=== PATIENT | male | born 1980 | race Caucasian/White ===

== ENCOUNTER → 2019-05-27 | Outpatient (CLI) | payer OTHER | LOC: COL.RAD 09:39 | DX: K74.60 Unspecified cirrhosis of liver (principal) ==

== ENCOUNTER → 2019-08-19 | Outpatient (CLI) | payer OTHER ==
[~2019-08-19] VITALS: Ht 172.7 cm; Wt 79.5 kg
[2019-08-19] VITALS (10 sets, daily range): BP systolic 96–118; BP diastolic 68–77; PULSE 75–86
[~2019-08-19] MED LIST: ALDACTONE50 MG PO; EPA FISH OIL1 SGL PO; LASIX 40MG TABL40 MG PO
[2019-08-19 11:32] LABS: INR 0.9 (0.8-3.0); PROTHROMBIN TIME 10.9 SECONDS (9.7-12.8)
--- NOTE | 2019-08-19 11:45 | NUR ---
PT TAKEN TO ULTRASOUND AND PLACED ON TABLE. MONITORING EQUIPMENT PLACED AND IMAGES TAKEN AND SENT.
--- NOTE | 2019-08-19 12:00 | NUR ---
PT WAS GIVEN 1MG VERSED AND 50 MCG FENTANYL
--- NOTE | 2019-08-19 12:00 | NUR ---
HERBERTH MENSAH IS WITH PT TO TRANSLATE FOR DR PUENTE.
--- NOTE | 2019-08-19 14:21 | NUR ---
PT TAKEN DOWN IN WHEELCHAIR WITH NIECE PRESENT. PT WS ABLE TO GET INTO THE POV WITH MINIMAL ASSIST.
== END ==
LOC: COL.RAD 10:00
PROVIDERS: Radiology Diagnostic Radiology
DX: K74.60 Unspecified cirrhosis of liver (principal)
CPT/HCPCS: 32108

== ENCOUNTER 2020-01-03 13:46 | Inpatient (IN) | payer SELFPAY ==
[~2020-01-03] VITALS: Ht 172.7 cm; Wt 90.2 kg
[2020-01-03] VITALS (174 sets, daily range): BP systolic 102–112; BP diastolic 78–85; PULSE 106–140; TEMP 97.8; O2SAT 91–100
[2020-01-03 14:33] LABS: BASO % 0.5 % (0.0-2.0); EOS # 0.1 (0.0-0.7); EOS % 0.9 % (0-4.0); GRAN # 6.1 (1.4-6.5); GRAN % 75.9 % (42.2-75.2); HEMATOCRIT 53.7 % (42.0-52.0); HEMOGLOBIN 17.8 g/dl (13.5-18.0); LYMPH % 12.2 % (20.0-51.0); MEAN CELL VOLUME 85 fl (80.0-100.0); MEAN CORPUSCULAR HEMOGLOBIN 28 pg (27.0-31.0); MEAN CORPUSCULAR HGB CONC 33 g/dl (33.0-37.0); MEAN PLATELET VOLUME 10.2 fl (7.4-10.4); MONO # 0.8 (0.1-0.6); MONO % 9.9 % (1.7-9.3); PLATELET COUNT 180 K/mm3 (130-400); RED BLOOD COUNT 6.32 M/mm3 (4.20-5.60); REDCELL DISTRIBUTION WIDTH-CV 14.2 % (11.5-14.5)
[2020-01-03 14:34] LABS: INR 1.1 (0.8-3.0); PROTHROMBIN TIME 11.8 SECONDS (9.7-12.8)
[2020-01-03 14:36] LABS: PARTIAL THROMBOPLASTIN TIME 22.9 SECONDS (26.0-37.0)
[2020-01-03 14:52] LABS: ANION GAP 7 mmol/L (7-16); CARBON DIOXIDE 22 mmol/L (22-30); CHLORIDE 99 mmol/L (98-107); POTASSIUM 4.2 mmol/L (3.4-5.0); SODIUM 128 mmol/L (137-145)
[2020-01-03 14:58] LABS: TROPONIN-I < 0.012 ng/mL (0.000-0.035)
[2020-01-03 15:11] LABS: ALANINE AMINOTRANSFERASE 17 U/L (4-49); ALKALINE PHOSPHATASE 72 U/L (50-136); AST,SGOT 37 U/L (15-37); BILIRUBIN,TOTAL 1.8 mg/dL (0.0-1.0); CREATININE, serum 1.16 (0.66-1.25); GLUCOSE 97 mg/dL (74-106); TOTAL PROTEIN 5.6 gm/dL (6.4-8.2)
[2020-01-03 15:28] LABS: BLOOD UREA NITROGEN 32 mg/dL (9-20); CALCIUM 8.2 mg/dL (8.4-10.2)
--- NOTE | 2020-01-03 19:20 | NUR ---
PATIENT TO CT SCAN BY WHEEL CHAIR
--- NOTE | 2020-01-03 19:40 | NUR ---
PATIENT BACK FROM CT SCAN
--- NOTE | 2020-01-03 20:00 | NUR ---
PATIENT SPEAK FLUENT SPAINISH, NO ENGILISH, USED PATIENT'S PHONE ERIC AND COMMUNICATION HAPPENS, MADE THROUGH ALL PROCESSES, AND ASSESSMENTS
[2020-01-04] VITALS (772 sets, daily range): BP systolic 102–125; BP diastolic 59–80; PULSE 81–156; TEMP 97.1–99.1; O2SAT 88–100
[2020-01-04 05:16] LABS: BASO % 0.5 % (0.0-2.0); EOS % 0.5 % (0-4.0); GRAN % 81.8 % (42.2-75.2); HEMATOCRIT 51.7 % (42.0-52.0); LYMPH # 0.7 (1.2-3.4); LYMPH % 8.1 % (20.0-51.0); MEAN CELL VOLUME 85 fl (80.0-100.0); MEAN CORPUSCULAR HEMOGLOBIN 28 pg (27.0-31.0); MEAN CORPUSCULAR HGB CONC 33 g/dl (33.0-37.0); MEAN PLATELET VOLUME 10.2 fl (7.4-10.4); MONO # 0.7 (0.1-0.6); MONO % 8.6 % (1.7-9.3); PLATELET COUNT 201 K/mm3 (130-400); RED BLOOD COUNT 6.09 M/mm3 (4.20-5.60); REDCELL DISTRIBUTION WIDTH-CV 14.3 % (11.5-14.5)
[2020-01-04 05:28] LABS: ALBUMIN 2.4 gm/dL (3.5-5.0); BILIRUBIN,TOTAL 1.6 mg/dL (0.0-1.0); CALCIUM 7.1 mg/dL (8.4-10.2); CREATININE, serum 0.93 (0.66-1.25); POTASSIUM 4.2 mmol/L (3.4-5.0); TOTAL PROTEIN 4.7 gm/dL (6.4-8.2)
--- NOTE | 2020-01-04 07:00 | NUR ---
PATIENT AND STAFF HAD A DISCUSSION ABOUT PATIENT'S HEART AND LUNGS, PATIENT HAS HAD FLUID DRAINED FROM LUNGS MANY TIMES, AND THAT IS WHY HE USES LASIX, THE AFIB IS NEW TO PATIENT, PATIENT IS ABLE TO COMMUNICATE WITH STAFF BY PHONE INTERRPRETER ERIC..
--- NOTE | 2020-01-04 09:20 | NUR ---
Dr Amaya here and updated on pt status. Pt remains in Afib 90-100s on cardizem gtt. Pt on heparin gtt. Noted varices in abdomen on CT scan. Okay to continue heparin gtt per Dr Amaya. Plan for cardioversion on Monday. Nurse called pt's friend, Kayleigh, and updated on plan of care.
--- NOTE | 2020-01-04 10:11 | NUR ---
Pt c/o swelling in face and neck. Pt stated it started since admission. He also have complaints of diarrhea, also new since admission. Pt denies feeling SOB, states he feels fine otherwise. VSS. Swelling in face doesn't seem noticeable, some swelling on left side of neck compared to right. Dr Rojo notified and will make changes to medications.
--- NOTE | 2020-01-04 12:36 | NUR ---
DR HANNAH AT BEDSIDE. VERBAL ORDERS TO HOLD CARDIZEM GTT AT THIS TIME. CONTINUE HEPARIN GTT.
--- NOTE | 2020-01-04 12:48 | NUR ---
Pt c/o increased swelling around neck. States it feels uncomfortable. Dr Rojo notified at 1210. Orders received for IV Benadryl. Nurse went back to room and pt more restless. States his neck is more uncomfortable. Feels tight. Dr Rojo notified and at bedside to see pt. Verbal orders to hold Cardizem gtt at this time. IV Benadryl given. Pt NPO at this time. Pt's friend, Kayleigh, updated on pt status by phone. Pt now resting in bed. Call light in reach. HR Afib 80-110s. Spo2 99% on 2L/NC.
--- NOTE | 2020-01-04 13:25 | NUR ---
Pt laying in bed, talking on phone. Call light in reach. HR Afib 80-100s.
--- NOTE | 2020-01-04 13:35 | NUR ---
Verbal orders by Dr Rojo to restart cardizem gtt at 5mg/hr. HR afib 80-100s. Orders to decrease IVF rate to 30ml/hr. Hold off on levaquin administration right now.
--- NOTE | 2020-01-04 13:42 | NUR ---
Dr Brennan at bedside to see pt.
[2020-01-04 16:05] LABS: HEPATITIS B SURFACE ANTIGEN Negative (Negative); HEPATITIS C VIRUS ANTIBODY Negative (Negative)
--- NOTE | 2020-01-04 18:25 | NUR ---
Notified Ashley GARCIA of pt's request to restart home meds lasix and aldactone. Pt's abd more distended and firm. Discussed IVF rate of 30ml/hr. Also notified of COVID test negative. Ashley GARCIA will talk with Dr Rojo and call me back.
--- NOTE | 2020-01-04 18:30 | NUR ---
Called Dr Amaya with update on pt. Pt's HR Afib 150-170s with cardizem gtt at 15mg/hr. SBP 120s. Orders received to increase cardizem gtt and digoxin IV.
--- NOTE | 2020-01-04 18:52 | NUR ---
PHONE ORDERS TO INCREASE CARDIZEM GTT TO 20MG/HR X8 HRS THEN DECREASE TO 15MG/HR PER DR CLARK.
--- NOTE | 2020-01-04 20:00 | NUR ---
PATIENT RESTING COMFORTABLE ON BED WITH LEG DANGLING OVER THE SIDE, VERY TALKATIVE, DENIES DISCOMFORT
[2020-01-05] VITALS (809 sets, daily range): BP systolic 108–134; BP diastolic 73–91; PULSE 64–111; TEMP 97.5–98.3; O2SAT 79–100
--- NOTE | 2020-01-05 07:05 | NUR ---
Report received from RADHAMES Harrison. PT in bed resting with eyes closed, breakfast tray placed at bedside. denies needs ,will continue to monitor.
--- NOTE | 2020-01-05 08:49 | NUR ---
Assessmetn charted. Pt called urgently for bathroom, had diarrhea. Pt states abd is uncomfortable from having diarrhea but denies pain. Denies other needs. Heparin and cardizem running in RFA, levaquin to LFA. Pt ambulates well when disconnected. Resting in bed, will continue to monitor.
[2020-01-05 10:46] LABS: BASO % 0.5 % (0.0-2.0); EOS # 0.1 (0.0-0.7); EOS % 1.9 % (0-4.0); GRAN # 4.8 (1.4-6.5); GRAN % 76.7 % (42.2-75.2); HEMOGLOBIN 15.2 g/dl (13.5-18.0); LYMPH # 0.6 (1.2-3.4); LYMPH % 10.2 % (20.0-51.0); MEAN CELL VOLUME 87 fl (80.0-100.0); MEAN CORPUSCULAR HEMOGLOBIN 28 pg (27.0-31.0); MEAN CORPUSCULAR HGB CONC 32 g/dl (33.0-37.0); MEAN PLATELET VOLUME 9.9 fl (7.4-10.4); MONO # 0.6 (0.1-0.6); MONO % 10.2 % (1.7-9.3); PLATELET COUNT 185 K/mm3 (130-400); RED BLOOD COUNT 5.38 M/mm3 (4.20-5.60); REDCELL DISTRIBUTION WIDTH-CV 14.1 % (11.5-14.5)
[2020-01-05 10:52] LABS: ALBUMIN 2.1 gm/dL (3.5-5.0); BILIRUBIN,TOTAL 0.8 mg/dL (0.0-1.0); CALCIUM 6.7 mg/dL (8.4-10.2); CREATININE, serum 0.94 (0.66-1.25); MAGNESIUM 1.9 mg/dL (1.6-2.3); POTASSIUM 3.7 mmol/L (3.4-5.0); TOTAL PROTEIN 4.2 gm/dL (6.4-8.2)
--- NOTE | 2020-01-05 10:59 | NUR ---
Per Dr. Rojo titrate cardizem gtt o 7.5 mg/hr
--- NOTE | 2020-01-05 12:14 | NUR ---
Pt c/o discomfort in abd and feeling full, called HOWARD Rojo ordered per Dr. Rojo.
--- NOTE | 2020-01-05 12:31 | NUR ---
PO Cardizem given 1 hour ago per Darrel and discontinued gtt now per orders.
--- NOTE | 2020-01-05 13:14 | NUR ---
Sw did attempt to complete discharge intake, however was not able to complete it. Patients covid testing was negative.
--- NOTE | 2020-01-05 18:43 | NUR ---
Pt has been up to bathroom often today to have small loose bowel movements. Continues to have abd discomfort but states that he does not have pain. Discussed need to eat slowly and "little by little" to help minimize discomfort and he verbalized understanding. Denies other needs, resting at side of bed, will give bedside shift report to nightshift nurse who zane resume care.
--- NOTE | 2020-01-05 20:14 | NUR ---
PATIENT HAS BEEN ACTIVE WITH USE OF TOILET, BROWN CLEAR SOFT STOOL, SOME LOOSE, MODERATE PATIENT STATES " i FEEL BETTER" THROUGH BOOM OPERATOR PHONE ERIC, ABDOMIN IS STILL DISTENDED, FIRM, WITH ACTIVE SOUNDS
[2020-01-06] VITALS (361 sets, daily range): BP systolic 96–130; BP diastolic 69–94; PULSE 62–136; TEMP 97.8–98.2; O2SAT 43–100
--- NOTE | 2020-01-06 07:15 | NUR ---
Bedside shift report received from RADHAMES Moody. Patient is lying in bed with no complaints or concerns at this time. Full assessment completed. Patient remains in afib with heart rate low 100's to 160's at times. Other vital signs stable. Heparin gtt assessed and infusing appropriately. Bed in lowest position. Call light and personal items within reach. Side rails up x2. Patient does not speak much Paraguayan and communicates effectively with phone translation at this time.
--- NOTE | 2020-01-06 09:00 | NUR ---
Discussed with tree pruner the patient's Chest CT findings and possible cardioversion today. Upholsterer Assembly Line and team made aware and verbal order received to leave patient NPO until further notice. Patient remains in afib with heart rate ranging from 100's to 170's at times. All other vital signs remain stable and patient has no complaints or concerns.
[2020-01-06 09:47] LABS: BASO % 0.4 % (0.0-2.0); EOS # 0.1 (0.0-0.7); EOS % 4.3 % (0-4.0); GRAN # 1.6 (1.4-6.5); GRAN % 69.6 % (42.2-75.2); HEMATOCRIT 40.3 % (42.0-52.0); LYMPH # 0.3 (1.2-3.4); MEAN CORPUSCULAR HGB CONC 30 g/dl (33.0-37.0); MEAN PLATELET VOLUME 9.8 fl (7.4-10.4); MONO # 0.3 (0.1-0.6); MONO % 12.8 % (1.7-9.3); PLATELET COUNT 127 K/mm3 (130-400); RED BLOOD COUNT 4.31 M/mm3 (4.20-5.60); REDCELL DISTRIBUTION WIDTH-CV 14.2 % (11.5-14.5)
[2020-01-06 09:48] LABS: HEMOGLOBIN 12.1 g/dl (13.5-18.0); MEAN CELL VOLUME 94 fl (80.0-100.0); MEAN CORPUSCULAR HEMOGLOBIN 28 pg (27.0-31.0)
--- NOTE | 2020-01-06 10:03 | NUR ---
Dr. Lester and Selam GARCIA at bedside to discuss plan for LUIS/Cardioversion with patient. Rubber Factory Worker used at this time. Patient verbalizes understanding, informed consent obtained and placed on chart.
--- NOTE | 2020-01-06 10:09 | NUR ---
Anesthesia notified of LUIS/Cardioversion planned for 1400 this afternoon. Anesthesia verbalizes understanding.
[2020-01-06 10:56] LABS: ALBUMIN 2.4 gm/dL (3.5-5.0); BILIRUBIN,TOTAL 0.7 mg/dL (0.0-1.0); CALCIUM 7.5 mg/dL (8.4-10.2); CREATININE, serum 1.03 (0.66-1.25); POTASSIUM 4.1 mmol/L (3.4-5.0); TOTAL PROTEIN 4.7 gm/dL (6.4-8.2)
--- NOTE | 2020-01-06 12:02 | NUR ---
Cardizem gtt initiated per physician orders for transport to [facility] for higher level care.
--- NOTE | 2020-01-06 12:18 | NUR ---
Report called to Gayatri at [facility] in [place]. All questions answered and RN has no more questions or concerns at this time.
--- NOTE | 2020-01-06 12:30 | NUR ---
EMS present for transfer. Patient's home medications returned to him and pharmacy paper signed and placed on chart. Patient packet given to EMS. RADHAMES Mendieta at [facility] notified of patient's departure.
== END 2020-01-06 12:43 | disposition short-term general hospital (02) | DRG 193 ==
LOC: COL.ER 13:46 → IMCU 15:12 → COL.ER 15:12 → IMCU 18:01
PROVIDERS: Family Medicine; ADMIT Student in an Organized Health Care Education/Training Program
DX: J18.9 Pneumonia, unspecified organism (principal); I26.99 Other pulmonary embolism without acute cor pulmonale; J90 Pleural effusion, not elsewhere classified; I48.91 Unspecified atrial fibrillation; K74.60 Unspecified cirrhosis of liver; I83.90 Asymptomatic varicose veins of unspecified lower extremity; Z20.828 Contact with and (suspected) exposure to other viral communicable diseases; R22.0 Localized swelling, mass and lump, head; Z79.01 Long term (current) use of anticoagulants
CPT/HCPCS: 99233-AI; 99239; C9113; J0696; J1160; J1200; J1644; J1956; J3475; J7030; J7120; Q9967

== ENCOUNTER 2020-03-30 13:49 | Inpatient (IN) | payer OTHER ==
[2020-03-30] VITALS (36 sets, daily range): BP systolic 101–102; BP diastolic 79–85; PULSE 105–123; TEMP 97.8–98; O2SAT 36–99
[~2020-03-30] VITALS: Ht 177.8 cm; Wt 91.6 kg
[2020-03-30 14:59] LABS: BASO % 0.6 % (0.0-2.0); EOS # 0.1 (0.0-0.7); GRAN # 3.9 (1.4-6.5); GRAN % 78.2 % (42.2-75.2); HEMATOCRIT 51.4 % (42.0-52.0); HEMOGLOBIN 16.1 g/dl (13.5-18.0); LYMPH # 0.5 (1.2-3.4); LYMPH % 9.3 % (20.0-51.0); MEAN CELL VOLUME 86 fl (80.0-100.0); MEAN CORPUSCULAR HEMOGLOBIN 27 pg (27.0-31.0); MEAN CORPUSCULAR HGB CONC 31 g/dl (33.0-37.0); MEAN PLATELET VOLUME 10.2 fl (7.4-10.4); MONO # 0.5 (0.1-0.6); MONO % 10.5 % (1.7-9.3); PLATELET COUNT 235 K/mm3 (130-400); RED BLOOD COUNT 5.98 M/mm3 (4.20-5.60); REDCELL DISTRIBUTION WIDTH-CV 14.1 % (11.5-14.5)
[2020-03-30 15:05] LABS: INR 1.1 (0.8-3.0); PROTHROMBIN TIME 11.9 SECONDS (9.7-12.8)
[2020-03-30 15:08] LABS: ALANINE AMINOTRANSFERASE 15 U/L (4-49); ALBUMIN 2.6 gm/dL (3.5-5.0); ALKALINE PHOSPHATASE 56 U/L (50-136); ANION GAP 3 mmol/L (7-16); AST,SGOT 29 U/L (15-37); BILIRUBIN,TOTAL 0.6 mg/dL (0.0-1.0); BLOOD UREA NITROGEN 26 mg/dL (9-20); CALCIUM 7.8 mg/dL (8.4-10.2); CARBON DIOXIDE 25 mmol/L (22-30); CHLORIDE 103 mmol/L (98-107); CREATININE, serum 0.99 (0.66-1.25); GLUCOSE 118 mg/dL (74-106); LIPASE 50 U/L (23-300); PARTIAL THROMBOPLASTIN TIME 30.2 SECONDS (26.0-37.0); POTASSIUM 4.3 mmol/L (3.4-5.0); SODIUM 131 mmol/L (137-145); TOTAL PROTEIN 5.1 gm/dL (6.4-8.2)
[2020-03-30 15:18] LABS: ALCOHOL(ethanol),MEDICAL < 10 mg/dL
[2020-03-30 15:32] LABS: TROPONIN-I < 0.012 ng/mL (0.000-0.035)
[2020-03-30] MEDS ORDERED: ALDACTONE50 MG PO (15:48)
[2020-03-30] MEDS ORDERED: LOPRESSOR 225 MG/TAB PO (15:48)
[2020-03-30] MEDS ORDERED: DIGITEK0.125 MG PO (15:49)
[2020-03-30] MEDS ORDERED: LASIX 40MG TABL40 MG PO (15:49)
[2020-03-30] MEDS ORDERED: MASON NATURAL1000 MG PO (15:50)
[2020-03-30 18:27] LABS: TSH w REFLEX 5.8 uIU/mL (0.465-4.680)
[2020-03-31] VITALS (276 sets, daily range): BP systolic 93–108; BP diastolic 63–80; PULSE 88–114; TEMP 97.8–98.4; O2SAT 43–100
[2020-03-31 03:57] LABS: COLLECTION METHOD CLEAN CATCH
[2020-03-31 04:13] LABS: MUCOUS Present /lpf; PH 5 (5-8); SQUAMOUS EPITHELIAL None Seen /hpf; URINE APPEARANCE Clear; URINE BACTERIA None Seen /hpf; URINE BILIRUBIN Negative (NEGATIVE); URINE BLOOD Negative (NEGATIVE); URINE COLOR Yellow; URINE GLUCOSE Negative (NEGATIVE); URINE KETONE Negative (NEGATIVE); URINE LEUKOCYTE ESTERASE Negative (NEGATIVE); URINE NITRATE Negative (NEGATIVE); URINE PROTEIN(semi-quant) Negative (NEGATIVE); URINE RBC 0-2 /hpf; URINE UROBILINOGEN Negative (NEGATIVE)
[2020-03-31 07:11] LABS: BASO % 0.5 % (0.0-2.0); EOS # 0.1 (0.0-0.7); EOS % 1.9 % (0-4.0); GRAN % 78.3 % (42.2-75.2); HEMATOCRIT 51.1 % (42.0-52.0); HEMOGLOBIN 16.4 g/dl (13.5-18.0); LYMPH # 0.6 (1.2-3.4); LYMPH % 9.5 % (20.0-51.0); MEAN CELL VOLUME 86 fl (80.0-100.0); MEAN CORPUSCULAR HEMOGLOBIN 28 pg (27.0-31.0); MEAN CORPUSCULAR HGB CONC 32 g/dl (33.0-37.0); MEAN PLATELET VOLUME 10.3 fl (7.4-10.4); MONO # 0.6 (0.1-0.6); MONO % 9.3 % (1.7-9.3); PLATELET COUNT 232 K/mm3 (130-400); RED BLOOD COUNT 5.94 M/mm3 (4.20-5.60); REDCELL DISTRIBUTION WIDTH-CV 14.3 % (11.5-14.5)
[2020-03-31 07:28] LABS: CALCIUM 7.7 mg/dL (8.4-10.2); CREATININE, serum 0.98 (0.66-1.25); POTASSIUM 4.3 mmol/L (3.4-5.0)
--- NOTE | 2020-03-31 08:00 | NUR ---
Shift assessment complete at this time. Plan of care reviewed at bedside using car ferrier service. Additional time taken to address any and all needs or concerns. Vitals stable at this time. Pt denies pain or any other discomforts. Bed in low position, call light within reach, will continue to monitor.
--- NOTE | 2020-03-31 10:46 | NUR ---
SW met with the patient to discuss discharge plan, via the medical review coordinator line. The patient lives in [place] with his sister, Tania Freeman (ph#[phone]), [id number], and his sister's children. He reports independence with ADLs and does not have any DME. The patient has been receiving primary care at [facility] in [place]. He states that his last visit there was around a month 1/2 ago. He receives his medications at [facility]. He reports occasional difficulties affording his meds. The patient is self pay. Financial Counseling has been consulted and plan is for a SOBRA application. The patient states that his sister has been able to help him with his meds, if needed. The patient does not have advanced directives completed. He states that he is not and has no children. His mother lives in [place]. The patient states that he just has his one sibling, Tania. He states that Tania is faroese speaking. The patient plans to return home with his family upon discharge. PADMINI to continue to follow.
[2020-04-01] VITALS (430 sets, daily range): BP systolic 81–113; BP diastolic 38–85; PULSE 67–133; TEMP 98.1–98.7; O2SAT 31–100
[2020-04-01 06:19] LABS: BASO % 0.8 % (0.0-2.0); EOS # 0.1 (0.0-0.7); EOS % 2.9 % (0-4.0); GRAN # 3.4 (1.4-6.5); GRAN % 69.1 % (42.2-75.2); HEMATOCRIT 49.1 % (42.0-52.0); HEMOGLOBIN 15.6 g/dl (13.5-18.0); LYMPH # 0.7 (1.2-3.4); LYMPH % 14.5 % (20.0-51.0); MEAN CELL VOLUME 85 fl (80.0-100.0); MEAN CORPUSCULAR HEMOGLOBIN 27 pg (27.0-31.0); MEAN CORPUSCULAR HGB CONC 32 g/dl (33.0-37.0); MEAN PLATELET VOLUME 10.2 fl (7.4-10.4); MONO # 0.6 (0.1-0.6); MONO % 12.3 % (1.7-9.3); PLATELET COUNT 236 K/mm3 (130-400); RED BLOOD COUNT 5.75 M/mm3 (4.20-5.60); REDCELL DISTRIBUTION WIDTH-CV 14.2 % (11.5-14.5)
[2020-04-01 06:47] LABS: CALCIUM 7.3 mg/dL (8.4-10.2); CREATININE, serum 1.01 (0.66-1.25); POTASSIUM 3.9 mmol/L (3.4-5.0)
--- NOTE | 2020-04-01 07:00 | NUR ---
Report given to RADHAMES Lofton.
[2020-04-02] VITALS (604 sets, daily range): BP systolic 92–112; BP diastolic 66–78; PULSE 83–119; TEMP 97.8–98.4; O2SAT 30–100
--- NOTE | 2020-04-02 14:45 | NUR ---
PADMINI contacted [facility] in [place] and secured the patient a follow up appointment on 04/21 at 1100. PADMINI faxed the patient's records to [facility]. PADMINI notified the patient's RN of the appointment. SW to continue to follow.
--- NOTE | 2020-04-02 20:10 | NUR ---
Patient awake and alert resting in bed; Denies any pain or shortness of air. VS within normal limits. Will continue to monitor.
[2020-04-03] VITALS (341 sets, daily range): BP systolic 97–105; BP diastolic 55–84; PULSE 77–106; TEMP 97.5–97.9; O2SAT 72–100
[2020-04-03 07:25] LABS: BASO % 0.7 % (0.0-2.0); EOS # 0.1 (0.0-0.7); EOS % 3.8 % (0-4.0); GRAN # 1.9 (1.4-6.5); GRAN % 66.4 % (42.2-75.2); HEMATOCRIT 50.4 % (42.0-52.0); LYMPH # 0.5 (1.2-3.4); MEAN CELL VOLUME 87 fl (80.0-100.0); MEAN CORPUSCULAR HEMOGLOBIN 28 pg (27.0-31.0); MEAN CORPUSCULAR HGB CONC 32 g/dl (33.0-37.0); MEAN PLATELET VOLUME 10.3 fl (7.4-10.4); MONO # 0.3 (0.1-0.6); MONO % 11.8 % (1.7-9.3); PLATELET COUNT 217 K/mm3 (130-400); RED BLOOD COUNT 5.78 M/mm3 (4.20-5.60); REDCELL DISTRIBUTION WIDTH-CV 14.1 % (11.5-14.5)
[2020-04-03 07:35] LABS: CREATININE, serum 0.97 (0.66-1.25); POTASSIUM 3.9 mmol/L (3.4-5.0)
[2020-04-03] MEDS ORDERED: DIGITEK0.25 MG PO (11:40)
[2020-04-03] MEDS ORDERED: TOPROL XL 25MG25 MG PO (11:44)
[2020-04-03] MEDS ORDERED: CARDIZEM CD 18180 MG PO (11:45)
[2020-04-03] MEDS ORDERED: LASIX 20MG TABL20 MG PO (11:45)
[2020-04-03] MEDS ORDERED: COUMADIN 5MG5 MG/TAB PO (11:46)
--- NOTE | 2020-04-03 13:08 | NUR ---
PADMINI attended clinical rounds. The patient is ready to discharge today, 04/03. The patient will need his INR checked next week. PADMINI contacted [facility]. The emergency vehicle driver reports that the patient actually already had an appointment scheduled for next , 04/09. She states that this is the soonest that they would be able to see him. PADMINI informed the hospitalist. The hospitalist reports that this will work. The patient is being prescribed five medications. PADMINI contacted [facility] and priced the medications. The total is $71.86. PADMINI met with the patient and updated him on the above information using the interpretor line. The patient verbalized understanding. He states that he would be able to afford his medications at [facility] and would pick them up today. PADMINI contacted and faxed the scripts to [facility]. PADMINI updated the patient's RN on the above information and proved her with the updated appointment at [facility]. No additional needs at this time.
--- NOTE | 2020-04-03 14:00 | NUR ---
discharge paperwork went over with patient via [employer] herminia on patients phone. Discussed his scripts, and follow up appointments and patient verbalized that he understood. Pateint was dressed and walked out to front ER entrance where family member picked him up.
== END 2020-04-03 14:30 | disposition home or self-care (01) | DRG 309 ==
LOC: COL.ER 13:49 → ICU 16:02 → EDBEDREQ 16:51 → ICU 04-03 14:30
PROVIDERS: Emergency Medicine; Internal Medicine; Physician Assistant; ADMIT Student in an Organized Health Care Education/Training Program
DX: I48.91 Unspecified atrial fibrillation (principal); E87.1 Hypo-osmolality and hyponatremia; K74.60 Unspecified cirrhosis of liver; R78.9 Finding of unspecified substance, not normally found in blood; R91.8 Other nonspecific abnormal finding of lung field; Z91.14 Patient's other noncompliance with medication regimen; Z91.19 Patient's noncompliance with other medical treatment and regimen
CPT/HCPCS: 99223-AI; 99232-AI; 99233-AI; 99239; J1650; J7040

== ENCOUNTER → 2020-04-13 | Outpatient (CLI) | payer OTHER ==
[~2020-04-13] MED LIST changes: +BUMEX 1MG TA1 MG/TA1; +CARDIZEM CD 18180 MG PO; +COUMADIN 5MG5 MG/TAB PO; +DIGITEK0.125 MG PO; +DIGITEK0.25 MG PO; +LASIX 20MG TABL20 MG PO; +LOPRESSOR 225 MG/TAB PO; +MASON NATURAL1000 MG PO; +TOPROL XL 25MG25 MG PO; +XARELTO20 MG
== END ==
LOC: COL.RAD 13:36
DX: J90 Pleural effusion, not elsewhere classified (principal); J18.1 Lobar pneumonia, unspecified organism

== ENCOUNTER 2020-04-15 19:22 | Emergency (ER) | payer OTHER ==
[~2020-04-15] VITALS: Ht 170 cm; Wt 91.8 kg
[~2020-04-15 19:22] MED LIST changes: -BUMEX 1MG TA1 MG/TA1; -XARELTO20 MG
[2020-04-15 19:40] VITALS: TEMP 98.6
[2020-04-15 21:38] LABS: BASO % 0.8 % (0.0-2.0); EOS # 0.1 (0.0-0.7); EOS % 2.7 % (0-4.0); GRAN # 2.6 (1.4-6.5); GRAN % 71.4 % (42.2-75.2); HEMATOCRIT 49.3 % (42.0-52.0); HEMOGLOBIN 15.4 g/dl (13.5-18.0); LYMPH # 0.5 (1.2-3.4); LYMPH % 12.8 % (20.0-51.0); MEAN CELL VOLUME 86 fl (80.0-100.0); MEAN CORPUSCULAR HEMOGLOBIN 27 pg (27.0-31.0); MEAN CORPUSCULAR HGB CONC 31 g/dl (33.0-37.0); MEAN PLATELET VOLUME 9.6 fl (7.4-10.4); MONO # 0.4 (0.1-0.6); PLATELET COUNT 221 K/mm3 (130-400); RED BLOOD COUNT 5.73 M/mm3 (4.20-5.60); REDCELL DISTRIBUTION WIDTH-CV 13.8 % (11.5-14.5)
[2020-04-15 21:46] LABS: INR 1.7 (0.8-3.0)
[2020-04-15 21:48] LABS: ALANINE AMINOTRANSFERASE 23 U/L (4-49); ALBUMIN 2.6 gm/dL (3.5-5.0); ALKALINE PHOSPHATASE 81 U/L (50-136); ANION GAP 4 mmol/L (7-16); AST,SGOT 37 U/L (15-37); BILIRUBIN,TOTAL 0.7 mg/dL (0.0-1.0); BLOOD UREA NITROGEN 20 mg/dL (9-20); CALCIUM 7.7 mg/dL (8.4-10.2); CARBON DIOXIDE 30 mmol/L (22-30); CHLORIDE 98 mmol/L (98-107); CREATININE, serum 1.15 (0.66-1.25); GLUCOSE 88 mg/dL (74-106); POTASSIUM 4.3 mmol/L (3.4-5.0); SODIUM 132 mmol/L (137-145); TOTAL PROTEIN 5.1 gm/dL (6.4-8.2)
[2020-04-15 21:49] LABS: PARTIAL THROMBOPLASTIN TIME 37.1 SECONDS (26.0-37.0)
[2020-04-15 22:04] LABS: TROPONIN-I < 0.012 ng/mL (0.000-0.035)
[2020-04-15] MEDS ORDERED: BUMEX 1MG TA1 MG/TA1 (22:11)
[2020-04-15] MEDS ORDERED: XARELTO20 MG (22:12)
[2020-04-15] MEDS ORDERED: ALDACTONE50 MG PO (22:15)
[2020-04-15 23:27] VITALS: BP 122/89; PULSE 94
== END 2020-04-15 23:29 | disposition home or self-care (01) ==
LOC: COL.ER 19:22
PROVIDERS: Family Medicine
DX: K74.60 Unspecified cirrhosis of liver (principal); Z86.718 Personal history of other venous thrombosis and embolism; Z79.01 Long term (current) use of anticoagulants
CPT/HCPCS: J1940

== ENCOUNTER → 2020-06-08 | Outpatient (CLI) | payer OTHER ==
[~2020-06-08] MED LIST changes: +BUMEX 1MG TA1 MG/TA1; +XARELTO20 MG
== END ==
LOC: COL.RAD 10:43
DX: I50.9 Heart failure, unspecified (principal); J90 Pleural effusion, not elsewhere classified; J94.8 Other specified pleural conditions; R18.8 Other ascites; R59.0 Localized enlarged lymph nodes; R16.1 Splenomegaly, not elsewhere classified
CPT/HCPCS: Q9967

== ENCOUNTER 2020-06-23 06:03 | Inpatient (IN) | payer OTHER ==
[2020-06-23] VITALS (10 sets, daily range): BP systolic 108–118; BP diastolic 55–81; PULSE 66–79; TEMP 97.5–98.2
[~2020-06-23] VITALS: Ht 165.1 cm; Wt 87.3 kg
[2020-06-23 07:09] LABS: HEMATOCRIT 42.2 % (42.0-52.0); HEMOGLOBIN 13.5 g/dl (13.5-18.0); MEAN CELL VOLUME 82 fl (80.0-100.0); MEAN CORPUSCULAR HEMOGLOBIN 26 pg (27.0-31.0); MEAN CORPUSCULAR HGB CONC 32 g/dl (33.0-37.0); MEAN PLATELET VOLUME 9.4 fl (7.4-10.4); PLATELET COUNT 301 K/mm3 (130-400); RED BLOOD COUNT 5.16 M/mm3 (4.20-5.60); REDCELL DISTRIBUTION WIDTH-CV 14.3 % (11.5-14.5)
[2020-06-23 07:16] LABS: INR 1.1 (0.8-3.0); PROTHROMBIN TIME 12.1 SECONDS (9.7-12.8)
[2020-06-23 07:19] LABS: PARTIAL THROMBOPLASTIN TIME 25.1 SECONDS (26.0-37.0)
[2020-06-23 07:21] LABS: ALBUMIN 2.8 gm/dL (3.5-5.0); BILIRUBIN,TOTAL 0.9 mg/dL (0.0-1.0); CALCIUM 8.2 mg/dL (8.4-10.2); CREATININE, serum 1.05 (0.66-1.25); MAGNESIUM 2.1 mg/dL (1.6-2.3); POTASSIUM 4.4 mmol/L (3.4-5.0); TOTAL PROTEIN 5.8 gm/dL (6.4-8.2)
[2020-06-23 07:50] LABS: THYROID STIMULATING HORMONE 16.9 uIU/mL (0.465-4.680)
[2020-06-23] MEDS ORDERED: LANOXIN 0.25M0.25 MG PO (07:53)
[2020-06-23] MEDS ORDERED: LASIX 40MG TABL40 MG PO (07:54)
[2020-06-23] MEDS ORDERED: TOPROL XL 25MG25 MG PO (07:55)
[2020-06-23] MEDS ORDERED: XARELTO20 MG PO (07:56)
[2020-06-23] MEDS ORDERED: TIAZAC180 MG PO (07:56)
--- NOTE | 2020-06-23 09:47 | NUR ---
Report called to Matty Ortiz.Pt will transfer to room 308.
--- NOTE | 2020-06-23 10:15 | NUR ---
PT BROUGHT UP TO FLOOR. PT BOLIVIAN SPEAKING ONLY, AEROSPACE ENGINEER OFFICER ARMAMENT LINE USED TO COMPLETE ADMISSION ASSESSMENT, PT DENIES PAIN/DISCOMFORT, PT TAKES PILLS WITH WATER, PT INDEPENDENT IN ROOM, PT BROUGHT HOME MEDICATIONS, MED REC UPDATED AND MEDS PUT IN MED ROOM FOR PHARMACY TO TAKE DOWN. NO OTHER NEEDS AT THIS TIME.
--- NOTE | 2020-06-23 10:25 | NUR ---
Pt to room 308,report to Matty Ortiz.
--- NOTE | 2020-06-23 18:22 | NUR ---
pt reporting pain 10/10 in throat
--- NOTE | 2020-06-23 18:37 | NUR ---
TYLENOL GIVEN TO PT FOR THROAT PAIN, PT NON PERUVIAN SPEAKING, ENGINEERING SCIENTIST LINE USED ALONG WITH ENGINEERING SCIENTIST ERIC ON PT PHONE FOR SMALL CONVERSATION. PT HR STABLE, NO OTHER NEEDS AT THIS TIME.
[2020-06-24 03:31] VITALS: BP 111/64; PULSE 64; TEMP 97.5
--- NOTE | 2020-06-24 04:50 | NUR ---
Quiet night- no requests, slept fair. VSS. Tele on.
[2020-06-24 06:27] LABS: BASO % 0.7 % (0.0-2.0); EOS # 0.2 (0.0-0.7); EOS % 5.1 % (0-4.0); GRAN # 2.1 (1.4-6.5); GRAN % 72.8 % (42.2-75.2); HEMATOCRIT 40.4 % (42.0-52.0); HEMOGLOBIN 12.5 g/dl (13.5-18.0); LYMPH # 0.3 (1.2-3.4); LYMPH % 8.8 % (20.0-51.0); MEAN CELL VOLUME 84 fl (80.0-100.0); MEAN CORPUSCULAR HEMOGLOBIN 26 pg (27.0-31.0); MEAN CORPUSCULAR HGB CONC 31 g/dl (33.0-37.0); MEAN PLATELET VOLUME 9.5 fl (7.4-10.4); MONO # 0.4 (0.1-0.6); MONO % 11.9 % (1.7-9.3); PLATELET COUNT 242 K/mm3 (130-400); RED BLOOD COUNT 4.83 M/mm3 (4.20-5.60); REDCELL DISTRIBUTION WIDTH-CV 14.6 % (11.5-14.5)
[2020-06-24 06:38] LABS: CALCIUM 7.8 mg/dL (8.4-10.2); CREATININE, serum 1.05 (0.66-1.25); MAGNESIUM 2.2 mg/dL (1.6-2.3); POTASSIUM 4.2 mmol/L (3.4-5.0)
[2020-06-24 07:35] VITALS: BP 108/65; PULSE 64; TEMP 98
--- NOTE | 2020-06-24 09:21 | NUR ---
NOTIFIED PHYSICIAN OF [facility] OF 108. ABRAHAM ORDERED TO HOLD ALDACTONE FOR TODAY, GIVE 20MG OF LASIX AND GIVE SOTOLOL. NO OTHER NEEDS AT THIS TIME.
--- NOTE | 2020-06-24 09:50 | NUR ---
PT PLEASANT, UTILIZED ROOF TRUSS BUILDER ERIC FOR SMALL CONVERSATION, PT REPORTED MINIMAL THROAT PAIN, TYLENOL GIVEN ALONG WITH OTHER MEDS, EXPLAINED WE CHANGED DOES OF LASIX AND HELD ALDACTONE DUE TO LOW BP. PT VERBALIZED UNDERSTANDING. PT ASSESSMENT PERFORMED, TELE ADJUSTED, VITALS TAKEN, MEDS GIVEN. NO OTHER NEEDS.
[2020-06-24 11:43] VITALS: BP 107/67; PULSE 63; TEMP 97.9
--- NOTE | 2020-06-24 17:11 | NUR ---
PT DENIES PAIN, DAY 2 SOTOLOL, PENSION EXAMINER ERIC USED FOR COMMUNICATION. PT PLEASANT, AOX4, NO OTHER NEEDS AT THIS TIME.
[2020-06-24 17:27] VITALS: BP 109/69; PULSE 66; TEMP 98
[2020-06-24 18:56] VITALS: BP 106/61; PULSE 71; TEMP 98.1
--- NOTE | 2020-06-24 20:30 | NUR ---
Initial shift assessment done- denies pain, no requests except for some soda,, talking on the phone with family. Qtc 384-Sotalol given as ordered- VSS.
[2020-06-24 23:17] VITALS: BP 100/55; PULSE 69; TEMP 97.9
[2020-06-25 03:11] VITALS: BP 113/66; PULSE 67; TEMP 97.5
--- NOTE | 2020-06-25 05:35 | NUR ---
Quiet night- no requests, Tele on. No chest pain/SOB. Slept well.
--- NOTE | 2020-06-25 07:00 | NUR ---
awake resting in bed, bedside shift report received from RADHAMES Masters, c/o of a sore throat when he takes in liquids, will notify on rounds
[2020-06-25 07:11] LABS: BASO % 0.7 % (0.0-2.0); EOS # 0.2 (0.0-0.7); EOS % 5.4 % (0-4.0); GRAN # 2.1 (1.4-6.5); GRAN % 71.7 % (42.2-75.2); HEMATOCRIT 39.9 % (42.0-52.0); HEMOGLOBIN 12.5 g/dl (13.5-18.0); LYMPH # 0.3 (1.2-3.4); LYMPH % 9.1 % (20.0-51.0); MEAN CELL VOLUME 82 fl (80.0-100.0); MEAN CORPUSCULAR HEMOGLOBIN 26 pg (27.0-31.0); MEAN CORPUSCULAR HGB CONC 31 g/dl (33.0-37.0); MEAN PLATELET VOLUME 9.7 fl (7.4-10.4); MONO # 0.4 (0.1-0.6); MONO % 12.8 % (1.7-9.3); PLATELET COUNT 238 K/mm3 (130-400); RED BLOOD COUNT 4.84 M/mm3 (4.20-5.60); REDCELL DISTRIBUTION WIDTH-CV 14.5 % (11.5-14.5)
[2020-06-25 07:23] VITALS: BP 103/63; PULSE 65; TEMP 98.3
[2020-06-25 07:26] LABS: CALCIUM 7.9 mg/dL (8.4-10.2); CREATININE, serum 0.88 (0.66-1.25); MAGNESIUM 2.1 mg/dL (1.6-2.3); POTASSIUM 4.3 mmol/L (3.4-5.0)
--- NOTE | 2020-06-25 08:49 | NUR ---
sitting up on side of bed, had breakfast and tolerated well, full assessment completed, see interventions for further info, denies needs
--- NOTE | 2020-06-25 09:09 | NUR ---
(late entry 06/24) Diving Coach met with the patient to complete initial intake. The patient is Tongan speaking. The patient lives in [place] with his sister, Tania #[phone] and her family ( and four nieces). The patient denies DME use and is independent. The patient's PCP is Rosa Alvarado and his next appointment is 07/23. The patient receives medications from [facility]. The patient is on program that provides vouchers for medication discounts. He was not sure what the program is called. The patient does not have advanced directives. He is not and has no children. The patient's mother, Alta Melchor #[phone] who lives in the [place] [facility] [place] [facility] in [place]. The patient plans to return home at discharge. His family will provide transport. PADMINI contacted the patient's sister, Tania to discuss the discharge plan of returning home. She was in agreeance. The patient is self-pay. PADMINI contacted Maria E Deras with finance. She reports the patient was approved for pedro pablo. The patient has not qualified for [place] in the past but she will try to apply once again. PADMINI collaborated the above information with the medical floor PADMINI.
--- NOTE | 2020-06-25 09:42 | NUR ---
spoke with Dr Tabares, will not given lasix and aldactone this am, will get EKG in 1 hour and then most likely discharge
[2020-06-25] MEDS ORDERED: BETAPACE 80MG80 MG PO (10:31)
[2020-06-25] MEDS ORDERED: ALDACTONE 25MG25 M1 PO (10:33)
[2020-06-25] MEDS ORDERED: LASIX 20MG TABL20 MG PO (10:33)
--- NOTE | 2020-06-25 10:51 | NUR ---
notified Dr Tabares that EKG has been completed, will plan discharge
[2020-06-25 11:14] VITALS: BP 106/68; PULSE 93; TEMP 97.4
--- NOTE | 2020-06-25 11:25 | NUR ---
resting in bed talking on phone with a friend, I spoke with friend and explained that patient is OK to go home, he gave this message to the patient, they will call for his ride and patient will inform this nurse when they arrive
--- NOTE | 2020-06-25 13:20 | NUR ---
discharge instructions given to patient with the assistance of the ranslator line, verified he understood his med changes and asked if he had any questions, INT and telemetry discontinued
--- NOTE | 2020-06-25 13:40 | NUR ---
home medications returned and patient discharged ambulatory
== END 2020-06-25 13:40 | disposition home or self-care (01) | DRG 309 ==
LOC: COL.CAR 06:03 → MEDICAL 09:16
PROVIDERS: ADMIT Internal Medicine Adult Congenital Heart Disease
PROC: 5A2204Z Restoration of Cardiac Rhythm, Single (ICD-10-PCS; principal; 2020-06-23)
DX: I48.19 Other persistent atrial fibrillation (principal); I50.32 Chronic diastolic (congestive) heart failure; E87.1 Hypo-osmolality and hyponatremia; Z87.891 Personal history of nicotine dependence; K74.60 Unspecified cirrhosis of liver; Z86.711 Personal history of pulmonary embolism
CPT/HCPCS: J2704; J7120

== ENCOUNTER → 2021-01-08 | Outpatient (CLI) | payer OTHER ==
[~2021-01-08] MED LIST changes: +ALDACTONE 25MG25 M1 PO; +BETAPACE 80MG80 MG PO; +LANOXIN 0.25M0.25 MG PO; +TIAZAC180 MG PO; +XARELTO20 MG PO
[2021-01-08 11:07] LABS: BASO % 0.8 % (0.0-2.0); EOS # 0.2 (0.0-0.7); EOS % 5.6 % (0-4.0); GRAN # 2.5 (1.4-6.5); GRAN % 70.9 % (42.2-75.2); HEMATOCRIT 41.9 % (42.0-52.0); HEMOGLOBIN 12.6 g/dl (13.5-18.0); LYMPH # 0.4 (1.2-3.4); LYMPH % 11.9 % (20.0-51.0); MEAN CELL VOLUME 80 fl (80.0-100.0); MEAN CORPUSCULAR HEMOGLOBIN 24 pg (27.0-31.0); MEAN CORPUSCULAR HGB CONC 30 g/dl (33.0-37.0); MEAN PLATELET VOLUME 10.6 fl (7.4-10.4); MONO # 0.4 (0.1-0.6); MONO % 10.5 % (1.7-9.3); PLATELET COUNT 225 K/mm3 (130-400); RED BLOOD COUNT 5.23 M/mm3 (4.20-5.60)
[2021-01-08 11:19] LABS: ALBUMIN 2.7 gm/dL (3.5-5.0); BILIRUBIN,TOTAL 1.2 mg/dL (0.0-1.0); CALCIUM 8.3 mg/dL (8.4-10.2); CREATININE, serum 0.79 (0.66-1.25); INR 1.8 (0.8-3.0); POTASSIUM 4.1 mmol/L (3.4-5.0); PROTHROMBIN TIME 19.7 SECONDS (9.7-12.8); TOTAL PROTEIN 5.5 gm/dL (6.4-8.2)
== END ==
LOC: COL.LAB 10:30 → COL.RAD 10:30
PROVIDERS: Student in an Organized Health Care Education/Training Program
DX: K74.69 Other cirrhosis of liver (principal)

== ENCOUNTER 2021-03-13 08:15 | Emergency (ER) | payer OTHER ==
[~2021-03-13] VITALS: Ht 170.2 cm; Wt 77.3 kg
[2021-03-13 09:40] VITALS: BP 105/64; PULSE 75
== END 2021-03-13 09:40 | disposition home or self-care (01) ==
LOC: COL.ER 08:15
DX: J90 Pleural effusion, not elsewhere classified (principal); I48.91 Unspecified atrial fibrillation; Z87.891 Personal history of nicotine dependence; Z79.01 Long term (current) use of anticoagulants

== ENCOUNTER → 2021-07-09 | Outpatient (CLI) | payer SELFPAY ==
[2021-07-09 23:52] LABS: PROCALCITONIN <0.05 ng/mL (0.00-0.09)
[2021-07-10 17:02] LABS: TB GOLD INTERPRETATION Indeterminate (Negative)
[2021-07-12 09:44] LABS: ANTISCLERODERMA-70 AB XXX
[2021-07-12 18:17] LABS: C-ANCA 14 U/mL (0-99)
[2021-07-13 14:52] LABS: ANGIOTENSIN CONVERTING ENZYME 17 U/L (16 - 85)
== END ==
LOC: COL.LAB 08:50
PROVIDERS: Internal Medicine Pulmonary Disease
DX: J90 Pleural effusion, not elsewhere classified (principal)

== ENCOUNTER 2021-07-30 12:16 | Emergency (ER) | payer SELFPAY ==
[2021-07-30 12:47] VITALS: TEMP 98
[2021-07-30 14:42] LABS: BASO % 0.8 % (0.0-2.0); EOS # 0.2 K/mm3 (0.0-0.7); EOS % 5.2 % (0-4.0); GRAN # 2.7 K/mm3 (1.4-6.5); GRAN % 74.3 % (42.2-75.2); LYMPH # 0.3 K/mm3 (1.2-3.4); LYMPH % 7.7 % (20.0-51.0); MEAN CELL VOLUME 70 fl (80.0-100.0); MEAN CORPUSCULAR HGB CONC 28 g/dl (33.0-37.0); MEAN PLATELET VOLUME 10.2 fl (7.4-10.4); MONO # 0.4 K/mm3 (0.1-0.6); MONO % 11.7 % (1.7-9.3); PLATELET COUNT 231 K/mm3 (130-400); RED BLOOD COUNT 4.43 M/mm3 (4.20-5.60); REDCELL DISTRIBUTION WIDTH-CV 16.6 % (11.5-14.5)
[2021-07-30 14:43] LABS: HEMATOCRIT 31.1 % (42.0-52.0); HEMOGLOBIN 8.8 g/dl (13.5-18.0); MEAN CORPUSCULAR HEMOGLOBIN 20 pg (27.0-31.0)
[2021-07-30 15:01] LABS: ALANINE AMINOTRANSFERASE 15 U/L (0-55); ALBUMIN 2.2 gm/dL (3.5-5.0); ALKALINE PHOSPHATASE 120 U/L (40-150); ANION GAP 8 mmol/L (7-16); AST,SGOT 31 U/L (5-34); BILIRUBIN,TOTAL 0.6 mg/dL (0.2-1.2); BLOOD UREA NITROGEN 14 mg/dL (9-21); C-REACTIVE PROTEIN 0.08 mg/dL (0.00-0.50); CARBON DIOXIDE 25 mmol/L (22-29); CHLORIDE 98 mmol/L (98-107); CREATININE, serum 0.77 mg/dL (0.72-1.25); GLUCOSE 81 mg/dL (70-99); LIPASE 32 U/L (8-78); POTASSIUM 4.3 mmol/L (3.5-4.5); SODIUM 131 mmol/L (136-145); TOTAL PROTEIN 5.2 gm/dL (6.2-8.1)
[2021-07-30 15:12] LABS: TROPONIN-I < 0.010 ng/mL (0.00-0.033)
[2021-07-30 17:31] VITALS: BP 106/67; PULSE 84
[2021-07-30 17:50] LABS: COLLECTION METHOD CLEAN CATCH
[2021-07-30 17:58] LABS: PH 7 (5-8); SQUAMOUS EPITHELIAL 0-2 /hpf (0-10); URINE APPEARANCE Clear (CLEAR/HAZY); URINE BACTERIA None Seen (NONE SEEN); URINE BILIRUBIN Negative (NEGATIVE); URINE BLOOD Negative (NEGATIVE); URINE COLOR Yellow (YELLOW); URINE GLUCOSE Negative (NEGATIVE); URINE KETONE Negative (NEGATIVE); URINE LEUKOCYTE ESTERASE Negative (NEGATIVE); URINE NITRATE Negative (NEGATIVE); URINE PROTEIN(semi-quant) Negative (NEGATIVE); URINE RBC 0-2 /hpf (0-2); URINE UROBILINOGEN >=4.0 mg/dL (NEGATIVE)
== END 2021-07-30 18:32 | disposition home or self-care (01) ==
LOC: COL.ER 12:16
PROVIDERS: Nurse Practitioner
DX: J90 Pleural effusion, not elsewhere classified (principal); I48.91 Unspecified atrial fibrillation; Z87.891 Personal history of nicotine dependence; Z79.01 Long term (current) use of anticoagulants

== ENCOUNTER → 2021-08-17 | Outpatient (CLI) | payer SELFPAY ==
[2021-08-17 11:14] LABS: CALCIUM 8.2 mg/dL (8.4-10.2); CREATININE, serum 0.8 mg/dL (0.72-1.25); POTASSIUM 4.8 mmol/L (3.5-4.5)
== END ==
LOC: COL.LAB 10:03
PROVIDERS: Student in an Organized Health Care Education/Training Program
DX: K74.69 Other cirrhosis of liver (principal); R93.2 Abnormal findings on diagnostic imaging of liver and biliary tract

== ENCOUNTER → 2021-08-23 | Outpatient (CLI) | payer SELFPAY ==
[2021-08-23 11:19] LABS: INR 1.3 (0.8-3.0); PROTHROMBIN TIME 14.5 SECONDS (9.7-12.8)
[2021-08-23 11:38] LABS: CALCIUM 8.4 mg/dL (8.4-10.2); CREATININE, serum 0.81 mg/dL (0.72-1.25); POTASSIUM 4.6 mmol/L (3.5-4.5)
== END ==
LOC: COL.LAB 10:29
DX: K74.69 Other cirrhosis of liver (principal); F10.11 Alcohol abuse, in remission

== ENCOUNTER → 2021-09-20 | Outpatient (CLI) | payer SELFPAY ==
[2021-09-20 11:09] LABS: CALCIUM 8.4 mg/dL (8.4-10.2); CREATININE, serum 0.89 mg/dL (0.72-1.25); POTASSIUM 4.9 mmol/L (3.5-4.5)
== END ==
LOC: COL.LAB 10:29
PROVIDERS: Student in an Organized Health Care Education/Training Program
DX: K74.69 Other cirrhosis of liver (principal)

== ENCOUNTER 2021-10-08 09:12 | Day surgery (SDC) | payer SELFPAY ==
[~2021-10-08] VITALS: Ht 170.2 cm; Wt 71.9 kg
[~2021-10-08 09:12] MED LIST changes: -MASON NATURAL1000 MG PO; +MASON NATURAL1200 MG PO
[2021-10-08] MEDS ORDERED: LIPITOR20 MG PO (09:54)
[2021-10-08] MEDS ORDERED: ALDACTONE 100M100 MG PO (09:55)
[2021-10-08 10:20] VITALS: BP 95/58; PULSE 83; TEMP 97.9
[2021-10-08 11:10] VITALS: BP 102/61; PULSE 85; TEMP 97.6
--- NOTE | 2021-10-08 11:10 | NUR ---
Patient arrived from endo suite, drowsy but oriented. Interpertation service was called #[id number] was able to facilitate conversation. Patient requested a muffin and Sprite to drink. Vitals obtained. Call jackman is within reach. Will continue to monitor per intervals.
[2021-10-08 11:25] VITALS: BP 98/65; PULSE 88
--- NOTE | 2021-10-08 11:25 | NUR ---
Patient is talking on the phone. Vitals obtained. He has finished his muffin and is tolerating it well.
[2021-10-08 11:40] VITALS: BP 102/56; PULSE 80
--- NOTE | 2021-10-08 11:40 | NUR ---
Vitals obtained. The patient is still talking on the phone. Call jackman remains in reach.
--- NOTE | 2021-10-08 12:00 | NUR ---
Interperator was called to reviewed DC instructions, educational material and to facilitate IV out. Catheter tip intact. Pressure bandage applied. No swelling or redness noted. Colonoscopy instructions from DR office was also reviewed. The patient verbalized understanding that the procedure would be at [facility], arrive by 1100AM and to read the pre-packet completly. The patient verbalized understanding of the instructions and patient education. The RN also reviewed the noted from the DR, stating to not take his Xarelto blood thinnner until further directed. The patient verbalized understanding through the interpertation service. He signed the realted paperwork. Denied needing assistance changing into his personal clothes and was escorted out via wheelchair by RADHAMES Faulkner. He has his DC packet and additional information about the procedure on Monday. Interpreting #[id number] was used during the call.
== END 2021-10-08 12:40 | disposition home or self-care (01) ==
LOC: SDCO 09:12
DX: D50.0 Iron deficiency anemia secondary to blood loss (chronic) (principal); K74.60 Unspecified cirrhosis of liver; I11.0 Hypertensive heart disease with heart failure; I50.9 Heart failure, unspecified; E87.1 Hypo-osmolality and hyponatremia; I48.19 Other persistent atrial fibrillation; Z79.899 Other long term (current) drug therapy
CPT/HCPCS: J2704; J7120

== ENCOUNTER 2021-10-29 06:48 | Day surgery (SDC) | payer SELFPAY ==
[~2021-10-29] VITALS: Ht 167.6 cm; Wt 75.1 kg
[~2021-10-29 06:48] MED LIST changes: +ALDACTONE 100M100 MG PO; +LIPITOR20 MG PO
[2021-10-29 07:32] VITALS: BP 102/44; PULSE 84; TEMP 97.3
[2021-10-29 08:10] VITALS: BP 80/51; PULSE 87; TEMP 96.5
--- NOTE | 2021-10-29 08:10 | NUR ---
The patient arrived from the endo suite, drowsy. His gait was steady ambulating from the cart to the chair. Vitals obtained and his BP is low. The patient was restless and kept moving while the BP cuff was inflated. Interperation line was used to facilitate conversation (#[id number]). Three warm blankets provided. Call jackman is within reach. The patient verbalized understanding of how to use the call jackman.
[2021-10-29 08:25] VITALS: BP 90/55; PULSE 79
--- NOTE | 2021-10-29 08:25 | NUR ---
Vitals obtained. The patient is still eating his muffin.
[2021-10-29 08:40] VITALS: BP 91/56; PULSE 88
--- NOTE | 2021-10-29 08:40 | NUR ---
Vitals obtained. The patient requested another warm muffin. Call jackman remains within reach. The patient is talking on the phone.
[2021-10-29 08:55] VITALS: BP 99/57; PULSE 90
--- NOTE | 2021-10-29 08:55 | NUR ---
Vitals obtained. The patient had disconnected the BP cuff from the vitals machine. The RN reconnected it. Interpertation line was used the facilitate DC interaction (#[id number]). IV was discontinued. Pressure bandage applied. No redness or swelling noted. DC instructions and educational material was reviewed with the patient, who verbalized understanding and signed the realted paperwork. The patient denied needing assistance changing into his personal clothes. Walt, his girlfriend was contacted. Call jackman remains within reach. The patient denied having any questions or concerns.
--- NOTE | 2021-10-29 09:55 | NUR ---
The patient was escorted out via wheelchair to the patient entrence by RADHAMES Encarnacion. The patient has his DC packet in hand and personal belongings in a small bag. The patient was transferred into the care of his girlfriend who is present to drive.
== END 2021-10-29 09:55 | disposition home or self-care (01) ==
LOC: SDCO 06:48
DX: D64.9 Anemia, unspecified (principal); K74.60 Unspecified cirrhosis of liver; R93.2 Abnormal findings on diagnostic imaging of liver and biliary tract
CPT/HCPCS: J2704; J7120

== ENCOUNTER → 2021-11-09 | Outpatient (CLI) | payer OTHER ==
[~2021-11-09] MED LIST changes: +ASPIRIN 81M81 MG/TA2 PO; +BETAPACE AF80 MG/TA1 PO; +ENULOSE10 GM/151 PO; +FERROUS SU325 MG/TAB PO; +NATURAL IRON65 MG PO; +PROTONIX 40MG T40 MG PO; +ROXICODONE 55 MG/TAB PO
== END ==
LOC: COL.LAB 12:18
DX: K74.69 Other cirrhosis of liver (principal)

== ENCOUNTER → 2021-11-12 | Outpatient (CLI) | payer OTHER ==
[~2021-11-12] MED LIST changes: -ASPIRIN 81M81 MG/TA2 PO; -BETAPACE AF80 MG/TA1 PO; -ENULOSE10 GM/151 PO; -FERROUS SU325 MG/TAB PO; -NATURAL IRON65 MG PO; -PROTONIX 40MG T40 MG PO; -ROXICODONE 55 MG/TAB PO
== END ==
LOC: ZCOL.LAB 12:39 → COL.LAB 12:39
DX: K74.69 Other cirrhosis of liver (principal)

== ENCOUNTER 2021-11-25 12:03 | Inpatient (IN) | payer SELFPAY ==
[~2021-11-25] VITALS: Ht 172.7 cm; Wt 70.5 kg
[2021-11-25] VITALS (9 sets, daily range): BP systolic 91–106; BP diastolic 38–52; PULSE 82–91; TEMP 97.5–98.4
[2021-11-25 13:07] LABS: EOS # 0.2 K/mm3 (0.0-0.7); EOS % 7.1 % (0.0-4.0); GRAN # 2.2 K/mm3 (1.4-6.5); GRAN % 70.7 % (42.2-75.2); LYMPH # 0.3 K/mm3 (1.2-3.4); LYMPH % 8.7 % (20.0-51.0); MEAN CELL VOLUME 70 fl (80.0-100.0); MEAN CORPUSCULAR HGB CONC 26 g/dl (33.0-37.0); MEAN PLATELET VOLUME 9.8 fl (7.4-10.4); MONO # 0.4 K/mm3 (0.1-0.6); MONO % 11.5 % (1.7-9.3); PLATELET COUNT 230 K/mm3 (130-400); RED BLOOD COUNT 3.07 M/mm3 (4.20-5.60); REDCELL DISTRIBUTION WIDTH-CV 21.1 % (11.5-14.5)
[2021-11-25 13:13] LABS: HEMATOCRIT 21.4 % (42.0-52.0); HEMOGLOBIN 5.6 g/dl (13.5-18.0); MEAN CORPUSCULAR HEMOGLOBIN 18 pg (27-31)
[2021-11-25 13:15] LABS: INR 1.2 (0.8-3.0); PROTHROMBIN TIME 13.6 SECONDS (9.7-12.8)
[2021-11-25 13:22] LABS: ALBUMIN 1.9 gm/dL (3.5-5.0); BILIRUBIN,TOTAL 0.6 mg/dL (0.2-1.2); C-REACTIVE PROTEIN 0.16 mg/dL (0.00-0.50); CALCIUM 7.9 mg/dL (8.4-10.2); CREATININE, serum 1.23 mg/dL (0.72-1.25); POTASSIUM 4.6 mmol/L (3.5-4.5); TOTAL PROTEIN 4.9 gm/dL (6.2-8.1)
[2021-11-25] MEDS ORDERED: ENULOSE10 GM/151 PO (16:30)
--- NOTE | 2021-11-25 20:00 | NUR ---
Patient is resting in bed receiving one unit of blood. VSS, Telemetry in place, NSR. States marla hes has been feeling weak all week. Assessment completed, meds provided. No other needs at this time. Caontinue monitoring.
[2021-11-25 23:59] LABS: HEMOGLOBIN 5.8 g/dl (13.5-18.0)
[2021-11-26] VITALS (13 sets, daily range): BP systolic 87–103; BP diastolic 42–63; PULSE 71–88; TEMP 97.6–98.6
[2021-11-26 06:18] LABS: BASO % 0.5 % (0.0-2.0); EOS # 0.2 K/mm3 (0.0-0.7); EOS % 5.2 % (0.0-4.0); GRAN # 3.4 K/mm3 (1.4-6.5); GRAN % 85.1 % (42.2-75.2); LYMPH # 0.1 K/mm3 (1.2-3.4); MEAN CELL VOLUME 71 fl (80.0-100.0); MEAN CORPUSCULAR HGB CONC 29 g/dl (33.0-37.0); MONO # 0.2 K/mm3 (0.1-0.6); MONO % 5.2 % (1.7-9.3); RED BLOOD COUNT 3.54 M/mm3 (4.20-5.60); REDCELL DISTRIBUTION WIDTH-CV 20.3 % (11.5-14.5)
--- NOTE | 2021-11-26 06:21 | NUR ---
PT has had a difficult night. He has received 2 units of blood. He complained of tooth pain. PRN provided. He was able to sleep after 4 am. He has been NPO from midnight. Report will be given to day RN.
[2021-11-26 06:37] LABS: ALBUMIN 1.8 gm/dL (3.5-5.0); CALCIUM 7.5 mg/dL (8.4-10.2); CREATININE, serum 0.84 mg/dL (0.72-1.25); MAGNESIUM 1.8 mg/dL (1.6-2.6); PHOSPHOROUS 3.7 mg/dL (2.3-4.7); POTASSIUM 4.6 mmol/L (3.5-4.5)
[2021-11-26 06:47] LABS: HEMATOCRIT 25.1 % (42.0-52.0); HEMOGLOBIN 7.2 g/dl (13.5-18.0); MEAN CORPUSCULAR HEMOGLOBIN 20 pg (27-31); PLATELET COUNT 145 K/mm3 (130-400)
[2021-11-26] MEDS ORDERED: LASIX 20MG TABL20 MG PO (07:41)
--- NOTE | 2021-11-26 11:22 | NUR ---
SW met with the patient to discuss discharge plan. The patient is pashto speaking. SW utilized the Translater Line to interpret. The patient lives in [place] with his sister, Tania Freeman (ph#[phone]), his [id number], and his niece and nephews. He states that his sister speaks a little Venezuelan, but is mostly pashto speaking. He reports independence with ADLs and does not have any DME. The patient goes to [facility] in [place] for primary care and he receives his medications from [facility]. He reports no difficulties obtaining his meds. The patient does not have a DPOA-HC. He states that he is not and does not have any children. His father is and his mother, Alta, still lives in [place]. The patient plans to return home with his sister and family upon discharge. No additional needs at this time. *Discharge plan: home with family*
--- NOTE | 2021-11-26 12:25 | NUR ---
PT OFF FLOOR WITH CT FOR SCAN AND PROCEDURE.
[2021-11-26 13:27] LABS: PERITONEAL -POLYMORPHONUCLEAR 50.5 % (0-25)
--- NOTE | 2021-11-26 18:24 | NUR ---
PT LAYING SUPINE IN BED ON ROOM AIR. PT DENIES PAIN. PUNCTURE SITE FOR PARACENTESIS IS COVERED WITH A BANDAID. IT IS DRY AND INTACT. PT STATES THAT HE WOULD LIKE A WARM BLANKET. BLANKET WAS GIVEN TO PT. PT STATES NO OTHER NEEDS AT THIS TIME. CALL LIGHT WITHIN REACH.
--- NOTE | 2021-11-26 22:00 | NUR ---
Patient is sitting in the side of the bed, complaining of pain in his teeth. Morphine provided. Alert and oriented x 4, BP low. Telemetry in place, NSR. Assessment completed, medications provided. No other needs at this time. Call light within reach.
[2021-11-27] VITALS (10 sets, daily range): BP systolic 93–98; BP diastolic 52–59; PULSE 71–92; TEMP 97.5–98.4
--- NOTE | 2021-11-27 07:22 | NUR ---
Patient has been sad since he does not understand what is going on with him. He states he has been looking for health care the last year but no improvement. He has been receiving his antibiotics. He has severe pain in his upper molares after eating. Morphine provided. Report given to day RN.
[2021-11-27 07:54] LABS: MEAN CELL VOLUME 75 fl (80.0-100.0); MEAN CORPUSCULAR HGB CONC 28 g/dl (33.0-37.0); MEAN PLATELET VOLUME 10.6 fl (7.4-10.4); PLATELET COUNT 155 K/mm3 (130-400); RED BLOOD COUNT 3.06 M/mm3 (4.20-5.60); REDCELL DISTRIBUTION WIDTH-CV 20.5 % (11.5-14.5)
[2021-11-27 08:06] LABS: ALBUMIN 2.3 gm/dL (3.5-5.0); CALCIUM 7.8 mg/dL (8.4-10.2); CREATININE, serum 0.8 mg/dL (0.72-1.25); PHOSPHOROUS 3.9 mg/dL (2.3-4.7); POTASSIUM 4.8 mmol/L (3.5-4.5)
[2021-11-27 08:11] LABS: HEMATOCRIT 22.9 % (42.0-52.0); MEAN CORPUSCULAR HEMOGLOBIN 21 pg (27-31)
[2021-11-27 08:13] LABS: HEMOGLOBIN 6.3 g/dl (13.5-18.0)
[2021-11-27 08:46] LABS: EOSINOPHIL 5 % (0-4); HYPOCHROMIA 3+; LYMPHOCYTE 4 % (20.0-51.0); MYELOCYTE 1 % (0-0); NEUTROPHILS 85 % (42.0-75.2)
[2021-11-27 08:47] LABS: ANISOCYTOSIS 2+; MICROCYTOSIS 1+; OVALOCYTES 1+; TEAR DROP CELLS 1+
[2021-11-27 08:48] LABS: POIKILOCYTOSIS 1+
--- NOTE | 2021-11-27 16:09 | NUR ---
TRANSFUSION COMPLETE. VS STABLE. PT IN BED. TOLERATED WELL. H&H RETIMED FOR [address] SAGE.
[2021-11-27 18:41] LABS: HEMATOCRIT 27.1 % (42.0-52.0); HEMOGLOBIN 7.5 g/dl (13.5-18.0)
[2021-11-28] VITALS (7 sets, daily range): BP systolic 95–102; BP diastolic 44–58; PULSE 68–89; TEMP 97.5–98.3
[2021-11-28 04:54] LABS: BASO % 0.7 % (0.0-2.0); EOS # 0.3 K/mm3 (0.0-0.7); EOS % 6.4 % (0.0-4.0); GRAN # 3.4 K/mm3 (1.4-6.5); GRAN % 74.4 % (42.2-75.2); LYMPH # 0.3 K/mm3 (1.2-3.4); MEAN CELL VOLUME 76 fl (80.0-100.0); MEAN CORPUSCULAR HGB CONC 28 g/dl (33.0-37.0); MEAN PLATELET VOLUME 9.8 fl (7.4-10.4); MONO # 0.5 K/mm3 (0.1-0.6); MONO % 11.6 % (1.7-9.3); PLATELET COUNT 146 K/mm3 (130-400); RED BLOOD COUNT 3.42 M/mm3 (4.20-5.60); REDCELL DISTRIBUTION WIDTH-CV 21.5 % (11.5-14.5)
[2021-11-28 05:00] LABS: HEMOGLOBIN 7.3 g/dl (13.5-18.0); MEAN CORPUSCULAR HEMOGLOBIN 21 pg (27-31)
[2021-11-28 05:33] LABS: ALBUMIN 3.1 gm/dL (3.5-5.0); CALCIUM 7.9 mg/dL (8.4-10.2); CREATININE, serum 0.89 mg/dL (0.72-1.25); MAGNESIUM 2.2 mg/dL (1.6-2.6); PHOSPHOROUS 3.6 mg/dL (2.3-4.7); POTASSIUM 5.5 mmol/L (3.5-4.5)
--- NOTE | 2021-11-28 06:37 | NUR ---
ASSUMED CARE OF PATIENT AFTER RECEIVING BEDSIDE REPORT. ASSESSMENT COMPLETED, VSS. PATIENT DENIES QUESTIONS OR CONCERNS. PATIENT COMPLAINED OF MANDIBULAR PAIN, ORAL PAIN MEDICATION PROVIDED PER MAR. NO ACUTE EVENTS OVERNIGHT. BEDSIDE REPORT TO BE GIVEN TO ONCOMING SHIFT.
--- NOTE | 2021-11-28 08:30 | NUR ---
PT SITTING UP AT SIDE OF BED WITH 2LIT VIA NC ON. PT STATES THAT HE IS NOT HAVING ANY PAIN. PT STATES NO NEEDS AT THIS TIME. CALL LIGHT IS WITHIN REACH.
[2021-11-28 18:18] LABS: HEMATOCRIT 24.8 % (42.0-52.0)
--- NOTE | 2021-11-28 18:39 | NUR ---
PT LAYING SUPINE IN BED. PT STATES THAT HIS "BOTTOM IS A LITTLE SORE AND WOULD LIKE SOME CREAM." PT WAS GIVEN SOME BARRIER CREAM OR REQUEST. PT STATES NO OTHER NEEDS OR PAIN AT THIS TIME. CALL LIGHT IS WITHIN REACH.
--- NOTE | 2021-11-28 22:15 | NUR ---
Patient alert and oriented. Patient speaks mongolian only and used Transinsight translater to communicated with patient. Patient denies any pain or discomfort. Denies SOB or dyspnea. All scheduled meds given per OCT. Apple juice provided per patient request. Call light in reach. Will continue to monitor.
[2021-11-29] VITALS (12 sets, daily range): BP systolic 71–105; BP diastolic 41–60; PULSE 76–91; TEMP 97.3–98.1
[2021-11-29 06:35] LABS: BASO % 0.6 % (0.0-2.0); EOS # 0.2 K/mm3 (0.0-0.7); EOS % 6.5 % (0.0-4.0); GRAN # 2.4 K/mm3 (1.4-6.5); GRAN % 73.5 % (42.2-75.2); LYMPH # 0.2 K/mm3 (1.2-3.4); LYMPH % 6.2 % (20.0-51.0); MEAN CELL VOLUME 76 fl (80.0-100.0); MEAN CORPUSCULAR HGB CONC 29 g/dl (33.0-37.0); MEAN PLATELET VOLUME 9.9 fl (7.4-10.4); MONO # 0.4 K/mm3 (0.1-0.6); MONO % 12.6 % (1.7-9.3); PLATELET COUNT 125 K/mm3 (130-400); RED BLOOD COUNT 3.07 M/mm3 (4.20-5.60)
[2021-11-29 06:46] LABS: ALBUMIN 3.3 gm/dL (3.5-5.0); CALCIUM 8.4 mg/dL (8.4-10.2); CREATININE, serum 0.96 mg/dL (0.72-1.25); MAGNESIUM 2.2 mg/dL (1.6-2.6); PHOSPHOROUS 3.5 mg/dL (2.3-4.7); POTASSIUM 4.6 mmol/L (3.5-4.5)
[2021-11-29 07:02] LABS: HEMATOCRIT 23.3 % (42.0-52.0); MEAN CORPUSCULAR HEMOGLOBIN 22 pg (27-31)
[2021-11-29 07:04] LABS: HEMOGLOBIN 6.7 g/dl (13.5-18.0)
--- NOTE | 2021-11-29 07:45 | NUR ---
PT IS SITTING AT SIDE OF BED WITH 2 LIT VIA NC ON. PT STATES THAT HE IS HAVING A REALLY BAD HEADACHE. PAIN MEDICATION WAS GIVEN PER PT REQUEST. PT STATES "NOT ABLE TO SLEEP LAST NIGHT BECAUSE MACHINES KEPT BEEPING OVER AND OVER." PT STATES NO OTHER NEEDS AT THIS TIME. CALL LIGHT IS WITHIN REACH.
--- NOTE | 2021-11-29 12:58 | NUR ---
First visit from the bar hostess. No needs right now.
[2021-11-29 17:40] LABS: HEMATOCRIT 27.8 % (42.0-52.0); HEMOGLOBIN 7.8 g/dl (13.5-18.0)
--- NOTE | 2021-11-29 18:30 | NUR ---
pt laying supine in bed on room air. pt states that he would like a pop. sprite was given to pt. no other needs were stated. pt states no pain at this time. pt hbg is 7.8. pt did have a small bm and it was a soft brown bm. no blood was seen. consent was sign for upper gi tomorrow. explained procedure and pt being npo tonight. voiced understanding. pt states that he has had it before. call light is within reach.
--- NOTE | 2021-11-29 20:30 | NUR ---
Patient is sitting on the side of the bed talking by cellphone with his brother. Alert and oriented x 4. Hypotension. States headache. Revised with Stacy Brito and she will check what can we provide. Telemetry in place, NSR. Abdomen distended and firm. Denies pain but states some SOB. Assessment completed, medications provided. Continue monitoring. Call light within reach.
[2021-11-30 00:12] VITALS: BP 93/52; PULSE 84; TEMP 98.3
[2021-11-30 03:57] VITALS: BP 89/43; PULSE 79; TEMP 98.3
[2021-11-30 06:17] LABS: BASO % 0.9 % (0.0-2.0); EOS # 0.3 K/mm3 (0.0-0.7); EOS % 7.4 % (0.0-4.0); GRAN # 2.5 K/mm3 (1.4-6.5); GRAN % 73.4 % (42.2-75.2); LYMPH # 0.2 K/mm3 (1.2-3.4); MEAN CELL VOLUME 79 fl (80.0-100.0); MEAN CORPUSCULAR HGB CONC 29 g/dl (33.0-37.0); MEAN PLATELET VOLUME 9.3 fl (7.4-10.4); MONO # 0.4 K/mm3 (0.1-0.6); MONO % 12.1 % (1.7-9.3); PLATELET COUNT 141 K/mm3 (130-400); RED BLOOD COUNT 3.45 M/mm3 (4.20-5.60); REDCELL DISTRIBUTION WIDTH-CV 24.3 % (11.5-14.5)
--- NOTE | 2021-11-30 06:18 | NUR ---
Patient was able to sleep intermitently. He has had some episodes of headache. He still has low BP. His abdomen is distended and firm but denies pain. Has been NPO from midnight. Report will be given to day RN.
[2021-11-30 06:29] LABS: HEMATOCRIT 27.2 % (42.0-52.0); HEMOGLOBIN 7.8 g/dl (13.5-18.0); MEAN CORPUSCULAR HEMOGLOBIN 23 pg (27-31)
[2021-11-30 06:43] LABS: ALBUMIN 3.1 gm/dL (3.5-5.0); CALCIUM 8.6 mg/dL (8.4-10.2); CREATININE, serum 0.97 mg/dL (0.72-1.25); PHOSPHOROUS 3.9 mg/dL (2.3-4.7); POTASSIUM 4.9 mmol/L (3.5-4.5)
[2021-11-30 07:50] VITALS: BP 94/58; PULSE 80; TEMP 98
[2021-11-30 11:11] VITALS: BP 101/64; PULSE 76; TEMP 97.5
--- NOTE | 2021-11-30 14:24 | NUR ---
Pt brought back from [facility] by RADHAMES Flaherty. VSS 111/. The patient states that he does not want to advance his diet slowly, that he wants real food, now. Will have pt drink some water to advance diet appropriately. No other concerns at this time.
[2021-11-30 18:55] LABS: HEMATOCRIT 27.7 % (42.0-52.0); HEMOGLOBIN 7.9 g/dl (13.5-18.0)
[2021-11-30 19:49] VITALS: BP 101/56; PULSE 88; TEMP 98.2
--- NOTE | 2021-11-30 20:30 | NUR ---
Patient is sitting on the side of the bed, alert and oriented x 4, VSS. Denies pain at the moment. Expresses his abdomen is more distended and now the fluid expanded to his back which shows edema. Telemetry in place, NSR. Receiving a dose of Zosyn. Aware of paracentesis the next day. Assessment completed, medications provided. No other needs at this time. Call light within reach.
[2021-12-01 00:04] VITALS: BP 94/50; PULSE 83; TEMP 98.1
[2021-12-01 04:02] VITALS: BP 99/59; PULSE 79; TEMP 97.8
[2021-12-01 06:27] LABS: BASO % 1.7 % (0.0-2.0); EOS # 0.3 K/mm3 (0.0-0.7); EOS % 10.5 % (0.0-4.0); GRAN # 1.6 K/mm3 (1.4-6.5); GRAN % 65.5 % (42.2-75.2); LYMPH # 0.2 K/mm3 (1.2-3.4); LYMPH % 7.6 % (20.0-51.0); MEAN CELL VOLUME 82 fl (80.0-100.0); MEAN CORPUSCULAR HGB CONC 28 g/dl (33.0-37.0); MEAN PLATELET VOLUME 9.6 fl (7.4-10.4); MONO # 0.3 K/mm3 (0.1-0.6); MONO % 13.9 % (1.7-9.3); PLATELET COUNT 158 K/mm3 (130-400); RED BLOOD COUNT 3.46 M/mm3 (4.20-5.60); REDCELL DISTRIBUTION WIDTH-CV 25.2 % (11.5-14.5)
[2021-12-01 06:32] LABS: HEMATOCRIT 28.3 % (42.0-52.0); HEMOGLOBIN 7.9 g/dl (13.5-18.0); MEAN CORPUSCULAR HEMOGLOBIN 23 pg (27-31)
[2021-12-01 06:43] LABS: ALBUMIN 3.2 gm/dL (3.5-5.0); BILIRUBIN,TOTAL 1.4 mg/dL (0.2-1.2); CALCIUM 8.7 mg/dL (8.4-10.2); CREATININE, serum 0.98 mg/dL (0.72-1.25); MAGNESIUM 1.8 mg/dL (1.6-2.6); TOTAL PROTEIN 5.7 gm/dL (6.2-8.1)
--- NOTE | 2021-12-01 06:43 | NUR ---
Patient had a dose of roxycodone for his headache. He was able to sleep till 4 am. Continue receiving his antibiotics. Waiting for the scheduled paracentesis. Report will be given to brittney RICCI.
[2021-12-01 07:33] VITALS: BP 98/58; PULSE 76; TEMP 97.5
[2021-12-01] MEDS ORDERED: FERROUS SU325 MG/TAB PO (10:32)
[2021-12-01] MEDS ORDERED: ALDACTONE 100M100 MG PO (10:33)
[2021-12-01] MEDS ORDERED: ASPIRIN 81M81 MG/TA2 PO (10:35)
[2021-12-01] MEDS ORDERED: LASIX 40MG TABL40 MG PO (10:35)
[2021-12-01] MEDS ORDERED: LIPITOR20 MG PO (10:45)
[2021-12-01] MEDS ORDERED: BETAPACE 80MG80 MG PO (10:45)
[2021-12-01] MEDS ORDERED: ROXICODONE 55 MG/TAB PO (10:46)
[2021-12-01 11:13] VITALS: BP 103/59; PULSE 87; TEMP 97.8
[2021-12-01 12:43] LABS: PERITONEAL -POLYMORPHONUCLEAR 15.3 % (0-25)
[2021-12-14] MEDS ORDERED: LIPITOR20 MG PO (12:11)
[2021-12-14] MEDS ORDERED: ASPIRIN 81M81 MG/TA2 PO (12:11)
[2021-12-14] MEDS ORDERED: NATURAL IRON65 MG PO (12:12)
[2021-12-14] MEDS ORDERED: LASIX 40MG TABL40 MG PO (12:24)
== END 2021-12-01 17:45 | disposition home or self-care (01) | DRG 811 ==
LOC: COL.ER 12:03 → MEDICAL 13:56
PROVIDERS: Family Medicine; Internal Medicine Gastroenterology; Physician Assistant; Student in an Organized Health Care Education/Training Program; ADMIT Internal Medicine
PROC: 0W9G3ZZ Drainage of Peritoneal Cavity, Percutaneous Approach (ICD-10-PCS; principal; 2021-11-26)
PROC: 02HV33Z Insertion of Infusion Device into Superior Vena Cava, Percutaneous Approach (ICD-10-PCS; 2021-11-26)
PROC: 0DB68ZX Excision of Stomach, Via Natural or Artificial Opening Endoscopic, Diagnostic (ICD-10-PCS; 2021-11-30)
PROC: 0W9G3ZZ Drainage of Peritoneal Cavity, Percutaneous Approach (ICD-10-PCS; 2021-12-01)
DX: D50.9 Iron deficiency anemia, unspecified (principal); J18.9 Pneumonia, unspecified organism; E87.1 Hypo-osmolality and hyponatremia; I50.32 Chronic diastolic (congestive) heart failure; K92.1 Melena; E44.0 Moderate protein-calorie malnutrition; J90 Pleural effusion, not elsewhere classified; I11.0 Hypertensive heart disease with heart failure; I48.91 Unspecified atrial fibrillation; K70.31 Alcoholic cirrhosis of liver with ascites; G51.0 Bell's palsy; E86.0 Dehydration; F32.A Depression, unspecified; E78.5 Hyperlipidemia, unspecified; J43.9 Emphysema, unspecified; K29.70 Gastritis, unspecified, without bleeding; E87.5 Hyperkalemia; Z87.891 Personal history of nicotine dependence; Z79.01 Long term (current) use of anticoagulants; Z86.711 Personal history of pulmonary embolism; Z68.23 Body mass index [BMI] 23.0-23.9, adult
CPT/HCPCS: 99223-AI; 99232-AI; 99233-AI; 99239; C1751; J0696; J1756; J2270; J2543; J7030; P9016; P9047; Q9967

== ENCOUNTER → 2021-12-14 | Outpatient (CLI) | payer SELFPAY ==
[~2021-12-14] VITALS: Ht 172.7 cm; Wt 159.0 kg
[~2021-12-14] MED LIST changes: +ASPIRIN 81M81 MG/TA2 PO; +BETAPACE AF80 MG/TA1 PO; +ENULOSE10 GM/151 PO; +FERROUS SU325 MG/TAB PO; +NATURAL IRON65 MG PO; +PROTONIX 40MG T40 MG PO; +ROXICODONE 55 MG/TAB PO
[2021-12-14 12:39] VITALS: BP 108/73; PULSE 89; TEMP 97.9
[2021-12-14 13:35] VITALS: BP 106/73; PULSE 81
== END ==
LOC: COL.RAD 11:52
DX: K74.60 Unspecified cirrhosis of liver (principal); D64.9 Anemia, unspecified
CPT/HCPCS: 19804

== ENCOUNTER → 2022-01-03 | Outpatient (CLI) | payer SELFPAY | LOC: COL.RAD 11:53 | DX: R59.0 Localized enlarged lymph nodes (principal); R94.8 Abnormal results of function studies of other organs and systems ==

== ENCOUNTER → 2022-01-12 | Outpatient (CLI) | payer SELFPAY ==
[~2022-01-12] VITALS: Ht 172.7 cm; Wt 73.8 kg
[2022-01-12 12:58] VITALS: BP 97/66; PULSE 77; TEMP 98
[2022-01-12 14:00] VITALS: BP 91/60; PULSE 66
== END ==
LOC: COL.RAD 12:29
DX: K74.69 Other cirrhosis of liver (principal); K25.9 Gastric ulcer, unspecified as acute or chronic, without hemorrhage or perforation; I99.8 Other disorder of circulatory system
CPT/HCPCS: 19804

== ENCOUNTER → 2022-02-14 | Outpatient (CLI) | payer SELFPAY ==
[~2022-02-14] VITALS: Ht 172.7 cm; Wt 66.7 kg
[~2022-02-14] MED LIST changes: +VITAMIN D 400400 IU PO
[2022-02-14 14:03] VITALS: BP 95/63; PULSE 70; TEMP 97.5
--- NOTE | 2022-02-14 14:30 | NUR ---
Returned from ultrasound. Pt did not need to be drained. Nelsy [facility] [employer] [facility] ([facility]) elfego getting new appointment for pt in 2 weeks. Pt out to car ambulatory in no distress.
== END ==
LOC: COL.RAD 13:22
DX: K74.69 Other cirrhosis of liver (principal); K70.11 Alcoholic hepatitis with ascites

== ENCOUNTER → 2022-09-15 | Outpatient (CLI) | payer OTHER | LOC: COL.RAD 09:47 | DX: R06.2 Wheezing (principal) ==

== ENCOUNTER → 2022-10-25 | Outpatient (CLI) | payer OTHER | LOC: COL.RAD 12:02 | DX: K74.60 Unspecified cirrhosis of liver (principal) ==